=== PATIENT | male | born 1940 | race Caucasian/White ===

== ENCOUNTER 2019-02-13 15:55 | Observation (INO) ==
[2019-02-13] MEDS ORDERED: 0.9 % Sodium Chloride 1,000 ML IVC ONE (16:09)
[2019-02-13 16:34] LABS: Basophils % 0.3 %; Eosinophils # 0.1 K/mcL (0.0-0.6); Eosinophils % 0.9 %; Hematocrit 45.7 % (37.5-50.1); Hemoglobin 15.4 g/dL (12.9-16.9); Immature Granulocytes % 0.1 % (0-4); Mean Corpuscular HGB Conc 33.7 g/dL (31.6-35.5); Mean Corpuscular Hemoglobin 29.7 pg (28.0-33.3); Mean Corpuscular Volume 88.2 fL (83.0-100.0); Mean Platelet Volume 11.3 fL (9.4-12.4); Neutrophils # 6.6 K/mcL (1.6-8.9); Platelet Count 165 K/mcL (140-400); Red Blood Count 5.18 M/mcL (4.19-5.50); Red Cell Distribution Width 14.4 % (11.5-14.5); Segmented Neutrophils % 75.7 %; White Blood Count 8.7 K/mcL (4.3-11.1)
[2019-02-13 17:01] LABS: Alanine Aminotransferase 14 Units/L (7-52); Albumin/Globulin Ratio 1.3 (1.1-2.2); Alkaline Phosphatase 45 Units/L (34-104); Aspartate Amino Transferase 15 Units/L (13-39); BUN/Creatinine Ratio 13 (6-26); Bilirubin,Direct 0.2 mg/dL (0.0-0.2); Bilirubin,Indirect 0.4 mg/dL (0.0-1.2); Bilirubin,Total 0.6 mg/dL (0.3-1.0); Blood Urea Nitrogen 10 mg/dL (8-23); Calcium 8.6 mg/dL (8.6-10.3); Carbon Dioxide 22 mEq/L (23-29); Chloride 104 mEq/L (98-107); Globulin 3.2 g/dL (2.4-3.5); Glucose 158 mg/dL (70-105); Magnesium 1.9 mg/dL (1.6-2.6); Osmolality,Calculated 282 (280-300); Phosphorous 2.6 mg/dL (2.7-4.5); Potassium 3.9 mEq/L (3.5-5.1); Sodium 135 mEq/L (136-145); Total Protein 7.2 g/dL (6.4-8.9); Troponin I < 0.03 ng/mL (< 0.04); eGFR For African Americans > 60 (> 60); eGFR For Non-African Americans > 60 (> 60)
[2019-02-13 18:19] LABS: Bilirubin,Urine Small (Negative); Blood,Urine Negative (Negative); Clarity,Urine Clear (Clear); Color,Urine Dark Yellow (Yellow); Glucose,Urine (UA) Normal (Normal); Ketones,Urine Trace mg/dL (Negative); Leukocyte Esterase,Urine Negative (Negative); Nitrite,Urine Negative (Negative); Protein,Urine 100 mg/dL (Neg-Trace); Specific Gravity,Urine 1.028 (1.010-1.025); Urobilinogen,Urine Normal (Normal)
[2019-02-13 18:22] LABS: Bacteria,Urine None Seen per hpf (None-Few); Squamous Epithelial Cell,Urine Many per lpf (None-Few)
[2019-02-13 18:36] LABS: Hyaline Casts,Urine Few per lpf (None-Few); Mucus,Urine Many (Few)
[2019-02-13] MEDS ORDERED: cefTRIAXone 1,000 MG in Water for inj. (sterile) 10 ML IVP ONE (19:28)
[2019-02-13] MEDS ORDERED: Naloxone 0.4 MG/ML INJ IVP PRN (21:47)
[2019-02-13] MEDS ORDERED: 0.9 % Sodium Chloride 1,000 ML IVC SCH (22:00)
[2019-02-13 22:15] LABS: Creatine Kinase 37 Units/L (30-223)
[2019-02-13 22:41] LABS: Thyroid Stimulating Hormone 1.905 mcIU/mL (0.340-5.600)
[2019-02-13] MEDS: Primidone 50 MG TABLET PO SCH (22:48)
[2019-02-14 02:03] LABS: Adenovirus Not Detected (Not Detect); Bordetella Pertussis Not Detected (Not Detect); Chlamydophila pneumoniae Not Detected (Not Detect); Coronavirus 229E Not Detected (Not Detect); Coronavirus HKU1 Not Detected (Not Detect); Coronavirus NL63 Not Detected (Not Detect); Coronavirus OC43 Not Detected (Not Detect); Human Metapneumovirus Not Detected (Not Detect); Human Rhinovirus/Enterovirus DETECTED (Not Detect); Influenza A Subtype 2009 H1 Not Detected (Not Detect); Influenza B Not Detected (Not Detect); Mycoplasma pneumoniae Not Detected (Not Detect); Parainfluenza Virus 1 Not Detected (Not Detect); Parainfluenza Virus 2 Not Detected (Not Detect); Parainfluenza Virus 3 Not Detected (Not Detect); Parainfluenza Virus 4 Not Detected (Not Detect); Respiratory Syncytial Virus Not Detected (Not Detect)
[2019-02-14 04:25] LABS: Basophils % 0.3 %; Eosinophils % 1.8 %; Immature Granulocytes % 0.3 % (0-4); Lymphocytes % 20.3 %; Mean Corpuscular HGB Conc 33.7 g/dL (31.6-35.5); Mean Corpuscular Hemoglobin 29.2 pg (28.0-33.3); Mean Corpuscular Volume 86.7 fL (83.0-100.0); Mean Platelet Volume 11.9 fL (9.4-12.4); Monocytes % 15.9 %; Platelet Count 138 K/mcL (140-400); Red Blood Count 4.73 M/mcL (4.19-5.50); Red Cell Distribution Width 14.5 % (11.5-14.5); Segmented Neutrophils % 61.4 %; White Blood Count 7.3 K/mcL (4.3-11.1)
[2019-02-14 04:26] LABS: Eosinophils # 0.1 K/mcL (0.0-0.6); Lymphocytes # 1.5 K/mcL (0.6-4.6); Monocytes # 1.2 K/mcL (0.0-1.3); Neutrophils # 4.5 K/mcL (1.6-8.9)
[2019-02-14 04:29] LABS: Hemoglobin 13.8 g/dL (12.9-16.9)
[2019-02-14 04:34] LABS: INR 1.1; Prothrombin Time 12.4 Seconds (9.4-12.1)
[2019-02-14 04:37] LABS: Activated Partial Thrombo Time 31.2 Seconds (26.0-36.0)
[2019-02-14 04:45] LABS: Alanine Aminotransferase 12 Units/L (7-52); Albumin 3.5 g/dL (3.5-5.7); Albumin/Globulin Ratio 1.3 (1.1-2.2); Alkaline Phosphatase 38 Units/L (34-104); Aspartate Amino Transferase 14 Units/L (13-39); BUN/Creatinine Ratio 16 (6-26); Bilirubin,Total 0.5 mg/dL (0.3-1.0); Blood Urea Nitrogen 11 mg/dL (8-23); Calcium 8.3 mg/dL (8.6-10.3); Carbon Dioxide 23 mEq/L (23-29); Chloride 107 mEq/L (98-107); Globulin 2.8 g/dL (2.4-3.5); Glucose 96 mg/dL (70-105); Osmolality,Calculated 283 (280-300); Potassium 3.7 mEq/L (3.5-5.1); Sodium 137 mEq/L (136-145); Total Protein 6.3 g/dL (6.4-8.9); eGFR For African Americans > 60 (> 60); eGFR For Non-African Americans > 60 (> 60)
[2019-02-14] MEDS: *HR* Heparin 5,000 UNIT/ML VIAL SQ SCH ×2 (05:47→14:57)
[2019-02-14] MEDS: Primidone 50 MG TABLET PO SCH (08:13)
[2019-02-14] MEDS ORDERED: Valsartan 160 MG TABLET PO SCH (09:00)
[2019-02-14] MEDS ORDERED: FLUoxetine 20 MG CAPSULE PO SCH (09:00)
[2019-02-14] MEDS ORDERED: amLODIPine 5 MG TABLET PO SCH (09:00)
[2019-02-14 14:53] VITALS: BP 154/89
== END 2019-02-14 17:04 | disposition home health service (06) ==
LOC: 3ANU 15:55 → EMEROOARM 15:55 → SUATTDRO 21:40 → 3ANU 21:58
PROVIDERS: ADMIT Internal Medicine; ATTEND Family Medicine

== ENCOUNTER 2019-04-10 11:53 | Observation (INO) ==
[2019-04-10 13:52] LABS: Basophils % 0.1 %; Hematocrit 44.2 % (37.5-50.1); Hemoglobin 14.7 g/dL (12.9-16.9); Immature Granulocytes % 0.5 % (0-4); Lymphocytes # 1.1 K/mcL (0.6-4.6); Lymphocytes % 9.7 %; Mean Corpuscular HGB Conc 33.3 g/dL (31.6-35.5); Mean Corpuscular Hemoglobin 28.6 pg (28.0-33.3); Mean Platelet Volume 10.6 fL (9.4-12.4); Monocytes # 0.6 K/mcL (0.0-1.3); Monocytes % 5.2 %; Neutrophils # 9.3 K/mcL (1.6-8.9); Platelet Count 144 K/mcL (140-400); Red Blood Count 5.14 M/mcL (4.19-5.50); Red Cell Distribution Width 14.5 % (11.5-14.5); Segmented Neutrophils % 84.5 %; White Blood Count 11.1 K/mcL (4.3-11.1)
[2019-04-10] MEDS ORDERED: Naloxone 0.4 MG/ML INJ IVP PRN (13:57)
[2019-04-10 14:05] LABS: Alanine Aminotransferase 15 Units/L (7-52); Albumin/Globulin Ratio 1.3 (1.1-2.2); Alkaline Phosphatase 38 Units/L (34-104); Aspartate Amino Transferase 20 Units/L (13-39); BUN/Creatinine Ratio 16 (6-26); Bilirubin,Total 0.7 mg/dL (0.3-1.0); Blood Urea Nitrogen 12 mg/dL (8-23); Calcium 8.3 mg/dL (8.6-10.3); Carbon Dioxide 21 mEq/L (23-29); Chloride 107 mEq/L (98-107); Glucose 127 mg/dL (70-105); Osmolality,Calculated 287 (280-300); Potassium 3.5 mEq/L (3.5-5.1); Sodium 138 mEq/L (136-145); eGFR For African Americans > 60 (> 60); eGFR For Non-African Americans > 60 (> 60)
[2019-04-10] MEDS: Doxycycline 100 MG in 0.9 % Sodium Chloride Mini Bag 100 ML IVPB SCH (15:30)
[2019-04-10] MEDS: cefTRIAXone 1,000 MG in Water for inj. (sterile) 10 ML IVP SCH (15:31)
[2019-04-10] MEDS: Metoprolol XL (24 HR) Succ 50 MG TAB.ER.24H PO SCH (20:38)
[2019-04-10] MEDS: Primidone 50 MG TABLET PO SCH (20:38)
[2019-04-11] MEDS: Doxycycline 100 MG in 0.9 % Sodium Chloride Mini Bag 100 ML IVPB SCH ×2 (03:38→15:05)
[2019-04-11] MEDS ORDERED: *HR* Enoxaparin 40 MG/0.4 ML SYRINGE SQ SCH (06:00)
[2019-04-11] MEDS: Metoprolol XL (24 HR) Succ 50 MG TAB.ER.24H PO SCH (07:59)
[2019-04-11] MEDS: Primidone 50 MG TABLET PO SCH (08:02)
[2019-04-11] MEDS ORDERED: FLUoxetine 20 MG CAPSULE PO SCH (09:00)
[2019-04-11] MEDS ORDERED: amLODIPine 5 MG TABLET PO SCH (09:00)
[2019-04-11] MEDS: cefTRIAXone 1,000 MG in Water for inj. (sterile) 10 ML IVP SCH (15:05)
[2019-04-11 15:36] VITALS: BP 173/97
[2019-04-11] MEDS ORDERED: FLU Vac QV 19-20 (6Month+)/PF 0.5 ML SYRINGE IM ONE (16:56)
== END 2019-04-11 18:06 | disposition home health service (06) ==
LOC: 3ANU
PROVIDERS: ADMIT Internal Medicine; ATTEND Internal Medicine

== ENCOUNTER 2019-08-02 08:44 | Inpatient (IN) ==
[2019-08-02 10:09] LABS: Basophils % 0.5 %; Eosinophils # 0.2 K/mcL (0.0-0.6); Eosinophils % 3.3 %; Hematocrit 31.4 % (37.5-50.1); Immature Granulocytes % 0.3 % (0-4); Lymphocytes # 2.3 K/mcL (0.6-4.6); Mean Corpuscular HGB Conc 31.8 g/dL (31.6-35.5); Mean Corpuscular Hemoglobin 27.5 pg (28.0-33.3); Mean Corpuscular Volume 86.5 fL (83.0-100.0); Mean Platelet Volume 10.5 fL (9.4-12.4); Monocytes # 0.8 K/mcL (0.0-1.3); Monocytes % 13.3 %; Neutrophils # 2.5 K/mcL (1.6-8.9); Platelet Count 250 K/mcL (140-400); Red Blood Count 3.63 M/mcL (4.19-5.50); Red Cell Distribution Width 14.3 % (11.5-14.5); Segmented Neutrophils % 42.6 %; White Blood Count 5.8 K/mcL (4.3-11.1)
[2019-08-02 10:10] LABS: INR 1.1; Prothrombin Time 12.5 Seconds (9.4-12.1)
[2019-08-02 10:22] LABS: BUN/Creatinine Ratio 28 (6-26); Blood Urea Nitrogen 22 mg/dL (8-23); Calcium 8.7 mg/dL (8.6-10.3); Carbon Dioxide 29 mEq/L (23-29); Chloride 98 mEq/L (98-107); Glucose 100 mg/dL (70-105); Osmolality,Calculated 285 (280-300); Potassium 3.2 mEq/L (3.5-5.1); Sodium 136 mEq/L (136-145); eGFR For African Americans > 60 (> 60); eGFR For Non-African Americans > 60 (> 60)
[2019-08-02] MEDS ORDERED: Ondansetron ODT 4 MG TAB.RAPDIS SL PRN (11:03)
[2019-08-02] MEDS: Haloperidol Lactate 5 MG/ML VIAL IVP PRN (18:44)
[2019-08-02] MEDS: D5% in 0.9% NACL 1,000 ML IVC SCH (18:44)
[2019-08-02] MEDS: Metoprolol XL (24 HR) Succ 50 MG TAB.ER.24H PO SCH (20:32)
[2019-08-02] MEDS: Primidone 50 MG TABLET PO SCH (20:32)
[2019-08-02] MEDS: Melatonin 3 MG TABLET PO SCH (20:32)
[2019-08-02] MEDS ORDERED: Haloperidol Lactate 5 MG/ML VIAL IVP ONE (21:02)
[2019-08-02] MEDS ORDERED: *HR* Promethazine 25 MG/ML VIAL IVP ONE (21:03)
[2019-08-02] MEDS ORDERED: Acetaminophen IV 1,000 MG/100 ML INFUS..BTL IVPB ONE (22:40)
[2019-08-02 23:45] LABS: Bilirubin,Urine Negative (Negative); Blood,Urine Negative (Negative); Clarity,Urine Clear (Clear); Color,Urine Yellow (Yellow); Glucose,Urine (UA) Normal (Normal); Ketones,Urine 15 mg/dL (Negative); Leukocyte Esterase,Urine Negative (Negative); Nitrite,Urine Negative (Negative); PH,Urine 7.5 pH Units (5.0-8.0); Protein,Urine Trace mg/dL (Neg-Trace); Urobilinogen,Urine Normal (Normal)
[2019-08-03] MEDS: Levalbuterol Neb 1.25 MG/3 ML IH SCH ×7 (00:10→23:09)
[2019-08-03] MEDS ORDERED: Ziprasidone 10 MG in Water for inj. (sterile) 0.5 ML IM ONE (01:40)
[2019-08-03] MEDS ORDERED: *HR* Heparin 5,000 UNIT/ML VIAL IVP ONE (02:02)
[2019-08-03] MEDS ORDERED: *HR* Heparin 5,000 UNIT/ML VIAL IVP PRN ×2 (02:02)
[2019-08-03] MEDS ORDERED: Heparin 25,000 UNIT/250 ML D5W 25,000 UNIT/250 ML IV.SOLN IVC SCH (02:15)
[2019-08-03] MEDS: Azithromycin 500 MG in 0.9 % Sodium Chloride 250 ML IVPB SCH (02:28)
[2019-08-03 02:32] LABS: Basophils % 0.1 %; Eosinophils # 0.1 K/mcL (0.0-0.6); Eosinophils % 0.4 %; Hematocrit 31.2 % (37.5-50.1); Hemoglobin 10.3 g/dL (12.9-16.9); Immature Granulocytes % 0.5 % (0-4); Lymphocytes # 2.2 K/mcL (0.6-4.6); Lymphocytes % 15.7 %; Mean Corpuscular Hemoglobin 27.8 pg (28.0-33.3); Mean Corpuscular Volume 84.1 fL (83.0-100.0); Mean Platelet Volume 10.3 fL (9.4-12.4); Neutrophils # 10.7 K/mcL (1.6-8.9); Platelet Count 269 K/mcL (140-400); Red Blood Count 3.71 M/mcL (4.19-5.50); Red Cell Distribution Width 14.6 % (11.5-14.5); Segmented Neutrophils % 76.3 %
[2019-08-03 02:41] LABS: BUN/Creatinine Ratio 24 (6-26); Blood Urea Nitrogen 20 mg/dL (8-23); Calcium 8.5 mg/dL (8.6-10.3); Carbon Dioxide 27 mEq/L (23-29); Chloride 100 mEq/L (98-107); Glucose 111 mg/dL (70-105); Osmolality,Calculated 283 (280-300); Potassium 3.2 mEq/L (3.5-5.1); Sodium 135 mEq/L (136-145); eGFR For African Americans > 60 (> 60); eGFR For Non-African Americans > 60 (> 60)
[2019-08-03 02:49] LABS: INR 1.2; Prothrombin Time 13.2 Seconds (9.4-12.1)
[2019-08-03] MEDS: Haloperidol Lactate 5 MG/ML VIAL IVP PRN ×3 (05:07→16:47)
[2019-08-03] MEDS: Piperacillin/Tazobactam 3.375 GM in 0.9 % Sodium Chloride Mini Bag 100 ML IVPB SCH ×3 (07:34→23:01)
[2019-08-03] MEDS: Primidone 50 MG TABLET PO SCH ×2 (07:35→21:07)
[2019-08-03] MEDS: Metoprolol XL (24 HR) Succ 50 MG TAB.ER.24H PO SCH ×2 (07:35→21:07)
[2019-08-03] MEDS: FLUoxetine 20 MG CAPSULE PO SCH (07:35)
[2019-08-03] MEDS: D5% in 0.9% NACL 1,000 ML IVC SCH (13:55)
[2019-08-03] MEDS ORDERED: Potassium Chloride 40 MEQ, Lidocaine 1% 2 ML in 0.9 % Sodium Chloride 500 ML IVPB ONE (16:04)
[2019-08-03] MEDS ORDERED: Acetaminophen IV 1,000 MG/100 ML INFUS..BTL IVPB ONE (20:45)
[2019-08-03] MEDS: Melatonin 3 MG TABLET PO SCH (21:07)
[2019-08-04] MEDS ORDERED: *HR* Metoprolol 5 MG/5 ML VIAL IVP SCH
[2019-08-04] MEDS: Azithromycin 500 MG in 0.9 % Sodium Chloride 250 ML IVPB SCH (01:57)
[2019-08-04] MEDS: Levalbuterol Neb 1.25 MG/3 ML IH SCH ×6 (03:26→22:52)
[2019-08-04 04:12] LABS: Basophils # 0.1 K/mcL (0.0-0.2); Basophils % 0.4 %; Eosinophils # 0.4 K/mcL (0.0-0.6); Eosinophils % 3.2 %; Hematocrit 29.7 % (37.5-50.1); Hemoglobin 9.6 g/dL (12.9-16.9); Immature Granulocytes % 0.4 % (0-4); Lymphocytes # 2.3 K/mcL (0.6-4.6); Lymphocytes % 18.5 %; Mean Corpuscular HGB Conc 32.3 g/dL (31.6-35.5); Mean Corpuscular Hemoglobin 27.7 pg (28.0-33.3); Mean Corpuscular Volume 85.6 fL (83.0-100.0); Mean Platelet Volume 10.3 fL (9.4-12.4); Monocytes # 0.7 K/mcL (0.0-1.3); Monocytes % 5.9 %; Neutrophils # 8.7 K/mcL (1.6-8.9); Platelet Count 220 K/mcL (140-400); Red Blood Count 3.47 M/mcL (4.19-5.50); Red Cell Distribution Width 14.6 % (11.5-14.5); Segmented Neutrophils % 71.6 %; White Blood Count 12.1 K/mcL (4.3-11.1)
[2019-08-04 04:36] LABS: BUN/Creatinine Ratio 12 (6-26); Blood Urea Nitrogen 9 mg/dL (8-23); Calcium 8.2 mg/dL (8.6-10.3); Carbon Dioxide 28 mEq/L (23-29); Chloride 106 mEq/L (98-107); Glucose 92 mg/dL (70-105); Magnesium 1.6 mg/dL (1.6-2.6); Osmolality,Calculated 288 (280-300); Potassium 3.3 mEq/L (3.5-5.1); Sodium 140 mEq/L (136-145); eGFR For African Americans > 60 (> 60); eGFR For Non-African Americans > 60 (> 60)
[2019-08-04] MEDS ORDERED: Potassium Chloride 40 MEQ, Lidocaine 1% 2 ML in 0.9 % Sodium Chloride 500 ML IVPB ONE (07:40)
[2019-08-04] MEDS: Piperacillin/Tazobactam 3.375 GM in 0.9 % Sodium Chloride Mini Bag 100 ML IVPB SCH ×2 (08:39→15:14)
[2019-08-04] MEDS: FLUoxetine 20 MG CAPSULE PO SCH (08:41)
[2019-08-04] MEDS: Primidone 50 MG TABLET PO SCH (08:41)
[2019-08-04] MEDS: D5% in 0.9% NACL 1,000 ML IVC SCH (12:34)
[2019-08-04] MEDS: Haloperidol Lactate 5 MG/ML VIAL IVP PRN (15:14)
[2019-08-04] MEDS ORDERED: Haloperidol Lactate 5 MG/ML VIAL IVP ONE ×2 (15:45→23:08)
[2019-08-04] MEDS: Haloperidol Lactate 5 MG/ML VIAL IVP SCH ×2 (16:14→22:30)
[2019-08-04] MEDS ORDERED: *HR* Promethazine 25 MG/ML VIAL IVP PRN (23:07)
[2019-08-05] MEDS: Piperacillin/Tazobactam 3.375 GM in 0.9 % Sodium Chloride Mini Bag 100 ML IVPB SCH ×3 (01:07→15:41)
[2019-08-05] MEDS: Levalbuterol Neb 1.25 MG/3 ML IH SCH ×5 (03:43→19:43)
[2019-08-05 04:46] LABS: Basophils % 0.3 %; Eosinophils # 0.4 K/mcL (0.0-0.6); Eosinophils % 4.5 %; Hematocrit 30.8 % (37.5-50.1); Hemoglobin 9.7 g/dL (12.9-16.9); Immature Granulocytes % 0.5 % (0-4); Lymphocytes # 1.8 K/mcL (0.6-4.6); Lymphocytes % 20.6 %; Mean Corpuscular HGB Conc 31.5 g/dL (31.6-35.5); Mean Corpuscular Hemoglobin 27.6 pg (28.0-33.3); Mean Corpuscular Volume 87.5 fL (83.0-100.0); Mean Platelet Volume 10.3 fL (9.4-12.4); Monocytes # 0.8 K/mcL (0.0-1.3); Monocytes % 9.7 %; Neutrophils # 5.5 K/mcL (1.6-8.9); Platelet Count 204 K/mcL (140-400); Red Blood Count 3.52 M/mcL (4.19-5.50); Red Cell Distribution Width 14.5 % (11.5-14.5); Segmented Neutrophils % 64.4 %; White Blood Count 8.6 K/mcL (4.3-11.1)
[2019-08-05 04:55] LABS: BUN/Creatinine Ratio 12 (6-26); Blood Urea Nitrogen 9 mg/dL (8-23); Calcium 8.4 mg/dL (8.6-10.3); Carbon Dioxide 26 mEq/L (23-29); Chloride 107 mEq/L (98-107); Glucose 82 mg/dL (70-105); Magnesium 1.5 mg/dL (1.6-2.6); Osmolality,Calculated 292 (280-300); Potassium 3.4 mEq/L (3.5-5.1); Sodium 142 mEq/L (136-145); eGFR For African Americans > 60 (> 60); eGFR For Non-African Americans > 60 (> 60)
[2019-08-05] MEDS: Haloperidol Lactate 5 MG/ML VIAL IVP SCH ×3 (06:06→15:41)
[2019-08-05] MEDS: Metoprolol XL (24 HR) Succ 50 MG TAB.ER.24H PO SCH ×2 (07:27→20:26)
[2019-08-05] MEDS: Azithromycin 500 MG in 0.9 % Sodium Chloride 250 ML IVPB SCH (07:36)
[2019-08-05] MEDS: D5% in 0.9% NACL 1,000 ML IVC SCH (07:36)
[2019-08-05] MEDS ORDERED: Potassium Chloride 40 MEQ, Lidocaine 1% 2 ML in 0.9 % Sodium Chloride 500 ML IVPB ONE (10:00)
[2019-08-05] MEDS: Ziprasidone 10 MG in Water for inj. (sterile) 0.5 ML IM PRN ×2 (17:04→23:33)
[2019-08-05] MEDS: *HR* Metoprolol 5 MG/5 ML VIAL IVP PRN (22:39)
[2019-08-06] MEDS: Levalbuterol Neb 1.25 MG/3 ML IH SCH ×7 (00:19→23:57)
[2019-08-06] MEDS: Piperacillin/Tazobactam 3.375 GM in 0.9 % Sodium Chloride Mini Bag 100 ML IVPB SCH ×2 (01:59→08:17)
[2019-08-06] MEDS: Azithromycin 500 MG in 0.9 % Sodium Chloride 250 ML IVPB SCH (07:16)
[2019-08-06] MEDS: Metoprolol XL (24 HR) Succ 50 MG TAB.ER.24H PO SCH (08:09)
[2019-08-06] MEDS: D5% in 0.9% NACL 1,000 ML IVC SCH (08:16)
[2019-08-06] MEDS: *HR* Metoprolol 5 MG/5 ML VIAL IVP PRN (09:00)
[2019-08-06] MEDS ORDERED: Aminoglycoside Consult 1 EACH MC ONE (09:26)
[2019-08-06] MEDS ORDERED: *HR* Dextrose 50 % in Water (Syg) 50 ML SYRINGE IVP PRN (09:48)
[2019-08-06] MEDS ORDERED: D5% in Water 1,000 ML IVC PRN (09:48)
[2019-08-06] MEDS ORDERED: Dextrose Gel 15 GM/37.5 ML TUBE PO PRN ×2 (09:48)
[2019-08-06] MEDS: 0.9 % Sodium Chloride 1,000 ML IVC SCH (11:40)
[2019-08-06] MEDS: Ziprasidone 10 MG in Water for inj. (sterile) 0.5 ML IM PRN (13:05)
[2019-08-06] MEDS: *HR* Metoprolol 5 MG/5 ML VIAL IVP SCH ×2 (14:12→20:01)
[2019-08-06] MEDS ORDERED: Ziprasidone 10 MG in Water for inj. (sterile) 0.5 ML IM ONE (16:03)
[2019-08-06] MEDS: Ampicillin/Sulbactam 3,000 MG in 0.9 % Sodium Chloride Mini Bag 100 ML IVPB SCH ×2 (17:34→23:28)
[2019-08-07] MEDS: Ziprasidone 10 MG in Water for inj. (sterile) 0.5 ML IM PRN (01:06)
[2019-08-07] MEDS: Levalbuterol Neb 1.25 MG/3 ML IH SCH ×5 (03:30→20:03)
[2019-08-07] MEDS: *HR* Metoprolol 5 MG/5 ML VIAL IVP SCH ×4 (03:33→20:51)
[2019-08-07] MEDS: Ampicillin/Sulbactam 3,000 MG in 0.9 % Sodium Chloride Mini Bag 100 ML IVPB SCH ×3 (05:10→18:02)
[2019-08-07 06:58] LABS: BUN/Creatinine Ratio 18 (6-26); Blood Urea Nitrogen 12 mg/dL (8-23); Calcium 8.4 mg/dL (8.6-10.3); Carbon Dioxide 30 mEq/L (23-29); Chloride 107 mEq/L (98-107); Glucose 89 mg/dL (70-105); Osmolality,Calculated 309 (280-300); Potassium 3.1 mEq/L (3.5-5.1); Sodium 150 mEq/L (136-145); eGFR For African Americans > 60 (> 60); eGFR For Non-African Americans > 60 (> 60)
[2019-08-07] MEDS: 0.9 % Sodium Chloride 1,000 ML IVC SCH (09:16)
[2019-08-07] MEDS ORDERED: Potassium Chloride 40 MEQ in D5% in 0.45% NACL 1,000 ML IVC SCH (10:00)
[2019-08-07] MEDS: Haloperidol Lactate 5 MG/ML VIAL IVP PRN (16:12)
[2019-08-07 17:18] LABS: BUN/Creatinine Ratio 18 (6-26); Blood Urea Nitrogen 10 mg/dL (8-23); Calcium 8.3 mg/dL (8.6-10.3); Carbon Dioxide 29 mEq/L (23-29); Chloride 109 mEq/L (98-107); Glucose 100 mg/dL (70-105); Osmolality,Calculated 301 (280-300); Sodium 146 mEq/L (136-145); eGFR For African Americans > 60 (> 60); eGFR For Non-African Americans > 60 (> 60)
[2019-08-07] MEDS ORDERED: Haloperidol Lactate 5 MG/ML VIAL IVP ONE (17:54)
[2019-08-07] MEDS ORDERED: *HR* LORazepam 2 MG/ML VIAL IVP ONE (18:51)
[2019-08-08] MEDS: Ampicillin/Sulbactam 3,000 MG in 0.9 % Sodium Chloride Mini Bag 100 ML IVPB SCH ×4 (00:10→18:13)
[2019-08-08] MEDS: Levalbuterol Neb 1.25 MG/3 ML IH SCH ×6 (00:12→19:51)
[2019-08-08] MEDS: *HR* Metoprolol 5 MG/5 ML VIAL IVP SCH ×4 (03:29→22:48)
[2019-08-08] MEDS: Haloperidol Lactate 5 MG/ML VIAL IVP PRN (05:28)
[2019-08-08 05:31] LABS: BUN/Creatinine Ratio 16 (6-26); Blood Urea Nitrogen 9 mg/dL (8-23); Calcium 8.1 mg/dL (8.6-10.3); Carbon Dioxide 29 mEq/L (23-29); Chloride 109 mEq/L (98-107); Glucose 103 mg/dL (70-105); Osmolality,Calculated 299 (280-300); Potassium 3.3 mEq/L (3.5-5.1); Sodium 145 mEq/L (136-145); eGFR For African Americans > 60 (> 60); eGFR For Non-African Americans > 60 (> 60)
[2019-08-08] MEDS ORDERED: *HR* LORazepam 2 MG/ML VIAL IVP ONE (12:58)
[2019-08-08] MEDS ORDERED: Lidocaine -MPF 2% 2 ML VIAL ONE (14:31)
[2019-08-08] MEDS ORDERED: *HR* Propofol 200 MG/20 ML VIAL IVP ONE ×2 (14:31→14:57)
[2019-08-08] MEDS: Pantoprazole 40 MG in 0.9 % Sodium Chloride Mini Bag 100 ML IVC SCH ×2 (16:45→21:45)
[2019-08-09] MEDS: Ampicillin/Sulbactam 3,000 MG in 0.9 % Sodium Chloride Mini Bag 100 ML IVPB SCH ×4 (00:08→18:15)
[2019-08-09] MEDS: Levalbuterol Neb 1.25 MG/3 ML IH SCH ×6 (00:12→20:09)
[2019-08-09] MEDS: Haloperidol Lactate 5 MG/ML VIAL IVP PRN ×4 (01:17→21:06)
[2019-08-09] MEDS ORDERED: *HR* LORazepam 2 MG/ML VIAL IVP ONE ×2 (01:47→16:43)
[2019-08-09] MEDS: Pantoprazole 40 MG in 0.9 % Sodium Chloride Mini Bag 100 ML IVC SCH ×3 (04:50→17:10)
[2019-08-09] MEDS: *HR* Metoprolol 5 MG/5 ML VIAL IVP SCH ×2 (04:51→09:15)
[2019-08-09] MEDS ORDERED: QUEtiapine Fumarate 25 MG TABLET PO SCH (09:45)
[2019-08-09 09:51] LABS: BUN/Creatinine Ratio 16 (6-26); Blood Urea Nitrogen 11 mg/dL (8-23); Calcium 8.3 mg/dL (8.6-10.3); Carbon Dioxide 29 mEq/L (23-29); Chloride 108 mEq/L (98-107); Glucose 89 mg/dL (70-105); Osmolality,Calculated 303 (280-300); Potassium 3.1 mEq/L (3.5-5.1); Sodium 147 mEq/L (136-145); eGFR For African Americans > 60 (> 60); eGFR For Non-African Americans > 60 (> 60)
[2019-08-09] MEDS: QUEtiapine Fumarate 25 MG TABLET GTUBE SCH ×2 (12:23→21:07)
[2019-08-09] MEDS ORDERED: *HR* Labetalol 20 MG/4 ML SYRINGE IVP ONE (16:59)
[2019-08-10] MEDS: Levalbuterol Neb 1.25 MG/3 ML IH SCH ×3 (00:35→07:48)
[2019-08-10] MEDS: Pantoprazole 40 MG in 0.9 % Sodium Chloride Mini Bag 100 ML IVC SCH ×4 (00:37→17:01)
[2019-08-10] MEDS: Haloperidol Lactate 5 MG/ML VIAL IVP PRN ×6 (01:12→21:24)
[2019-08-10 02:57] LABS: BUN/Creatinine Ratio 22 (6-26); Blood Urea Nitrogen 17 mg/dL (8-23); Calcium 7.8 mg/dL (8.6-10.3); Carbon Dioxide 31 mEq/L (23-29); Chloride 110 mEq/L (98-107); Glucose 144 mg/dL (70-105); Osmolality,Calculated 308 (280-300); Potassium 2.9 mEq/L (3.5-5.1); Sodium 147 mEq/L (136-145); eGFR For African Americans > 60 (> 60); eGFR For Non-African Americans > 60 (> 60)
[2019-08-10] MEDS: QUEtiapine Fumarate 25 MG TABLET GTUBE SCH ×2 (08:33→20:17)
[2019-08-10] MEDS ORDERED: QUEtiapine Fumarate 25 MG TABLET GTUBE SCH (09:00)
[2019-08-10] MEDS ORDERED: QUEtiapine Fumarate 25 MG TABLET PO ONE (09:15)
[2019-08-10] MEDS: Potassium Chloride Elixir 20 MEQ/15 ML UDC GTUBE SCH ×3 (09:17→16:52)
[2019-08-10] MEDS ORDERED: Levalbuterol Neb 1.25 MG/3 ML IH PRN (10:48)
[2019-08-10] MEDS: Pantoprazole 40 MG VIAL IVP SCH ×2 (14:55→17:54)
[2019-08-10] MEDS: *HR* LORazepam 2 MG/ML VIAL IVP PRN (22:39)
[2019-08-11] MEDS: Haloperidol Lactate 5 MG/ML VIAL IVP PRN ×4 (01:52→15:24)
[2019-08-11 05:24] LABS: BUN/Creatinine Ratio 30 (6-26); Blood Urea Nitrogen 17 mg/dL (8-23); Calcium 7.5 mg/dL (8.6-10.3); Carbon Dioxide 28 mEq/L (23-29); Chloride 112 mEq/L (98-107); Glucose 117 mg/dL (70-105); Osmolality,Calculated 303 (280-300); Potassium 3.5 mEq/L (3.5-5.1); Sodium 145 mEq/L (136-145); eGFR For African Americans > 60 (> 60); eGFR For Non-African Americans > 60 (> 60)
[2019-08-11] MEDS: Pantoprazole 40 MG VIAL IVP SCH ×2 (05:37→16:57)
[2019-08-11] MEDS: QUEtiapine Fumarate 25 MG TABLET GTUBE SCH ×2 (08:26→20:29)
[2019-08-11] MEDS: *HR* LORazepam 2 MG/ML VIAL IVP PRN (08:26)
[2019-08-11] MEDS ORDERED: *HR* LORazepam 2 MG/ML VIAL IVP ONE (18:13)
[2019-08-12] MEDS: Haloperidol Lactate 5 MG/ML VIAL IVP PRN ×3 (02:54→14:11)
[2019-08-12] MEDS: Pantoprazole 40 MG VIAL IVP SCH ×2 (05:59→16:02)
[2019-08-12] MEDS: QUEtiapine Fumarate 25 MG TABLET GTUBE SCH ×3 (09:10→21:14)
[2019-08-12] MEDS ORDERED: Morphine Sulfate 2 MG/ML SYRINGE IVP ONE (16:00)
[2019-08-12] MEDS ORDERED: Haloperidol Lactate 5 MG/ML VIAL IVP ONE (21:13)
[2019-08-12] MEDS ORDERED: *HR* Promethazine 25 MG/ML VIAL IVP ONE (21:32)
[2019-08-13] MEDS ORDERED: *HR* LORazepam 2 MG/ML VIAL IVP ONE (03:02)
[2019-08-13] MEDS ORDERED: Haloperidol Lactate 5 MG/ML VIAL IVP ONE (05:25)
[2019-08-13] MEDS ORDERED: *HR* Promethazine 25 MG/ML VIAL IVP ONE (05:26)
[2019-08-13] MEDS: Pantoprazole 40 MG VIAL IVP SCH (05:37)
[2019-08-13] MEDS: QUEtiapine Fumarate 25 MG TABLET GTUBE SCH ×2 (09:00→18:02)
[2019-08-13] MEDS: Haloperidol Lactate 5 MG/ML VIAL IVP PRN ×2 (11:55→20:03)
[2019-08-13] MEDS ORDERED: Ziprasidone 10 MG in Water for inj. (sterile) 0.5 ML IM ONE (13:44)
[2019-08-13] MEDS: amLODIPine 5 MG TABLET GTUBE SCH (15:21)
[2019-08-14] MEDS: Haloperidol Lactate 5 MG/ML VIAL IVP PRN ×2 (00:10→13:32)
[2019-08-14] MEDS: *HR* LORazepam 2 MG/ML VIAL IVP PRN ×3 (02:08→15:48)
[2019-08-14] MEDS: QUEtiapine Fumarate 25 MG TABLET GTUBE SCH ×2 (09:19→18:49)
[2019-08-14] MEDS: amLODIPine 5 MG TABLET GTUBE SCH (09:19)
[2019-08-14] MEDS ORDERED: *HR* Labetalol 20 MG/4 ML SYRINGE IVP PRN (10:48)
[2019-08-14] MEDS: carvediloL 6.25 MG TABLET GTUBE SCH (18:49)
[2019-08-15] MEDS: *HR* LORazepam 2 MG/ML VIAL IVP PRN ×2 (02:53→08:39)
[2019-08-15] MEDS ORDERED: Ziprasidone 10 MG in Water for inj. (sterile) 0.5 ML IM ONE (08:42)
[2019-08-15] MEDS: QUEtiapine Fumarate 25 MG TABLET GTUBE SCH ×2 (10:32→16:57)
[2019-08-15] MEDS: amLODIPine 5 MG TABLET GTUBE SCH (10:32)
[2019-08-15] MEDS: carvediloL 6.25 MG TABLET GTUBE SCH ×2 (10:33→16:57)
[2019-08-16] MEDS: amLODIPine 5 MG TABLET GTUBE SCH (08:48)
[2019-08-16] MEDS: QUEtiapine Fumarate 25 MG TABLET GTUBE SCH ×2 (08:48→17:28)
[2019-08-16] MEDS: carvediloL 6.25 MG TABLET GTUBE SCH ×2 (08:48→17:28)
[2019-08-16] MEDS: *HR* LORazepam 2 MG/ML VIAL IVP PRN (15:17)
[2019-08-17] MEDS: *HR* LORazepam 2 MG/ML VIAL IVP PRN ×2 (02:05→13:33)
[2019-08-17 07:08] LABS: Basophils % 0.6 %; Eosinophils # 0.6 K/mcL (0.0-0.6); Eosinophils % 8.2 %; Hematocrit 35.9 % (37.5-50.1); Hemoglobin 11.3 g/dL (12.9-16.9); Immature Granulocytes % 0.3 % (0-4); Lymphocytes # 2.4 K/mcL (0.6-4.6); Lymphocytes % 33.8 %; Mean Corpuscular HGB Conc 31.5 g/dL (31.6-35.5); Mean Corpuscular Hemoglobin 26.5 pg (28.0-33.3); Mean Corpuscular Volume 84.1 fL (83.0-100.0); Mean Platelet Volume 12.3 fL (9.4-12.4); Monocytes # 0.6 K/mcL (0.0-1.3); Monocytes % 8.2 %; Neutrophils # 3.5 K/mcL (1.6-8.9); Platelet Count 223 K/mcL (140-400); Red Blood Count 4.27 M/mcL (4.19-5.50); Red Cell Distribution Width 15.1 % (11.5-14.5); Segmented Neutrophils % 48.9 %; White Blood Count 7.2 K/mcL (4.3-11.1)
[2019-08-17] MEDS: QUEtiapine Fumarate 25 MG TABLET GTUBE SCH ×2 (08:22→17:46)
[2019-08-17] MEDS: carvediloL 6.25 MG TABLET GTUBE SCH ×2 (08:23→17:47)
[2019-08-17] MEDS: amLODIPine 5 MG TABLET GTUBE SCH (08:23)
[2019-08-17 09:00] LABS: BUN/Creatinine Ratio 32 (6-26); Blood Urea Nitrogen 31 mg/dL (8-23); Calcium 8.6 mg/dL (8.6-10.3); Carbon Dioxide 30 mEq/L (23-29); Chloride 106 mEq/L (98-107); Glucose 118 mg/dL (70-105); Osmolality,Calculated 300 (280-300); Sodium 141 mEq/L (136-145); eGFR For African Americans > 60 (> 60); eGFR For Non-African Americans > 60 (> 60)
[2019-08-17] MEDS ORDERED: 0.9 % Sodium Chloride 1,000 ML IVC SCH (10:15)
[2019-08-18] MEDS: *HR* LORazepam 2 MG/ML VIAL IVP PRN ×3 (01:41→17:01)
[2019-08-18] MEDS: carvediloL 6.25 MG TABLET GTUBE SCH ×2 (08:09→17:01)
[2019-08-18] MEDS: amLODIPine 5 MG TABLET GTUBE SCH (08:09)
[2019-08-18] MEDS: QUEtiapine Fumarate 25 MG TABLET GTUBE SCH ×2 (08:09→17:49)
[2019-08-19 05:29] LABS: BUN/Creatinine Ratio 32 (6-26); Blood Urea Nitrogen 21 mg/dL (8-23); Calcium 8.3 mg/dL (8.6-10.3); Carbon Dioxide 30 mEq/L (23-29); Chloride 106 mEq/L (98-107); Glucose 87 mg/dL (70-105); Osmolality,Calculated 294 (280-300); Potassium 4.4 mEq/L (3.5-5.1); Sodium 141 mEq/L (136-145); eGFR For African Americans > 60 (> 60); eGFR For Non-African Americans > 60 (> 60)
[2019-08-19] MEDS: *HR* LORazepam 2 MG/ML VIAL IVP PRN ×3 (07:27→22:45)
[2019-08-19] MEDS: carvediloL 6.25 MG TABLET GTUBE SCH ×2 (07:28→17:51)
[2019-08-19] MEDS: amLODIPine 5 MG TABLET GTUBE SCH (07:28)
[2019-08-19] MEDS: QUEtiapine Fumarate 25 MG TABLET GTUBE SCH ×2 (07:28→17:51)
[2019-08-19] MEDS: Haloperidol Lactate 5 MG/ML VIAL IVP PRN (23:15)
[2019-08-20] MEDS ORDERED: *HR* LORazepam 2 MG/ML VIAL IVP ONE ×2 (00:24→08:41)
[2019-08-20] MEDS ORDERED: Haloperidol Lactate 5 MG/ML VIAL IM ONE (01:00)
[2019-08-20] MEDS: *HR* LORazepam 2 MG/ML VIAL IVP PRN (04:40)
[2019-08-20] MEDS: carvediloL 6.25 MG TABLET GTUBE SCH (08:37)
[2019-08-20] MEDS: QUEtiapine Fumarate 25 MG TABLET GTUBE SCH (08:38)
[2019-08-20] MEDS: amLODIPine 5 MG TABLET GTUBE SCH (08:38)
[2019-08-20 11:31] VITALS: BP 158/84
== END 2019-08-20 13:15 | DRG 871 ==
LOC: 3ANU 08:44 → EMEROOARM 08:44 → SUATTDRO 12:05 → 3ANU 12:47 → SUATTDRO 08-03 17:17
PROVIDERS: ADMIT Internal Medicine; ATTEND Internal Medicine